=== PATIENT | female | born 1935 | race Caucasian/White ===

== ENCOUNTER 2018-06-17 16:26 | Outpatient (CLI) | payer MEDICARE ==
--- NOTE | 2018-06-17 19:07 | RAD ---
SACRUM AND COCCYX 06/17/18 The tip of the coccyx is angulated posteriorly just a bit compared to the normal curve of the rest of the bones. This is probably slightly displaced, though no fracture line is seen. Arcuate lines of th e sacrum appear intact. The SI joints appear normal. The pubic rings both appeared intact and the sym physis appears normal. IMPRESSION: Very slight posterior angulation of the coccyx. Minimal displacement is suspected. Code T POS: HOME
== END 2018-06-17 16:27 | disposition home or self-care (01) ==
LOC: BURRAD 16:26
PROVIDERS: ATTEND Nurse Practitioner
DX: M53.3 Sacrococcygeal disorders, not elsewhere classified (principal)
CPT/HCPCS: 72220